=== PATIENT | female | born 1965 | race Caucasian/White ===

== ENCOUNTER 2017-12-15 19:03 | Emergency (ER) | payer OTHER ==
[~2017-12-15] VITALS: Ht 165.1 cm; Wt 91.9 kg
[2017-12-15] MEDS ORDERED: ERYTHROMYC1 APPLICAT RIGHT EYE (20:44)
[2017-12-15 21:04] VITALS: BP 115/86
== END 2017-12-15 21:04 | disposition home or self-care (01) ==
LOC: RME 19:03 → EME 19:03 → RME 21:04
DX: S05.01XA Injury of conjunctiva and corneal abrasion without foreign body, right eye, initial encounter (principal); W54.8XXA Other contact with dog, initial encounter
CPT/HCPCS: 99281; 99284